=== PATIENT | female | born 1935 | race Caucasian/White ===

== ENCOUNTER 2017-03-10 08:01 | Emergency (ER) | payer MEDICARE, OTHER ==
[2017-03-10 08:20] VITALS: BP 141/78; PULSE 72; O2SAT 98
--- NOTE | 2017-03-10 08:28 | ERPHSYRPT ---
- History of Present Illness Time Seen by Provider: 03/10/17 08:12 Source: patient Patient Subjective Stated Complaint: girish irene on bed spread getting up this mornign has small skin tear on her left elbow Triage Nursing Assessment: pt alert and oriented, ambulates, well gait is steady , pupils perrla 1, lung sounds clear diminished, pulse equal bilateral radius, no pain or tenderness anywhere else. patient states she did not injure anywhere else. has a 4cm wide and 4 cm long half colmenares shape skin tear to left elbow. Physician History: CC: left elbow injury Hx: 81 y/o patient of Dr Mercado got up late and quickly this AM as she was late to go to the grocery. She got her feet tangled in the bedclothes and tripped. Sklin tear to the left elbow. No other injuries. No bony pain. No neck or back pain. No head injury. No N/T/W. Tetanus vaccine updated in past year. Occurred: this morning Extremities Pain Location: elbow: left Allergies/Adverse Reactions: ciprofloxacin [From Cipro] Allergy (Intermediate, Verified 08/16/13 17:49) ciprofloxacin HCl [From Cipro] Allergy (Intermediate, Verified 08/16/13 17:49) Sulfa (Sulfonamide Antibiotics) Allergy (Verified 08/16/13 17:49) Hx Tetanus, Diphtheria Vaccination/Date Given: Yes Hx Influenza Vaccination/Date Given: Yes Hx Pneumococcal Vaccination/Date Given: Yes Immunizations Up to Date: Yes - Review of Systems Constitutional: No Symptoms Musculoskeletal: Fall, No Back Pain, No Neck Pain Skin: Skin Lesions (skin tear) Neurological: No Focal Weakness, No Headache, No Parasthesia - Past Medical History Pertinent Past Medical History: No - Past Surgical History Past Surgical History: Yes Gastrointestinal: Appendectomy Female Surgical History: Hysterectomy Other Surgical History: tonsils - Social History Smoking Status: Never smoker Exposure to second hand smoke: No Drug Use: none Patient Lives Alone: No - Female History Hx Now: No - Nursing Vital Signs Nursing Vital Signs: Initial Vital Signs Temperature 97.9 F Temperature Source Oral Pulse Rate 72 Respiratory Rate 18 Blood Pressure [Right Arm] 141/78 Pain Intensity 0 - Physical Exam General Appearance: alert, other (pleasant lady) Eyes, Ears, Nose, Throat Exam: moist mucous membranes Neck Exam: normal inspection, non-tender, supple Cardiovascular/Respiratory Exam: chest non-tender, normal breath sounds, regular rate/rhythm Abdominal Exam: non-tender, soft Back Exam: normal inspection, No vertebral tenderness Shoulder Exam: normal inspection, non-tender Elbow/Forearm Exam: non-tender, normal ROM, abrasions (skin tear left elbow in arcuate flap nature measuing 5cm in total length) Wrist Exam: normal inspection, non-tender Hand Exam: normal inspection, non-tender SpO2: 98 Oxygen Delivery: Room Air - Course Nursing assessment & vital signs reviewed: Yes Ordered Tests: Active Orders 24 hr Category Date Time Status Wound Care STAT Care 03/10/17 08:22 Active - Progress Progress Note: 03/10/17 08:27 Pt declines xray. She has no bony pain. She needs wound care. Skin fragile so suture not likely best. Will repair with steri strips. Wound care in str given. Counseled pt/family regarding: diagnosis, need for follow-up - Departure Time of Disposition: 08:27 Departure Disposition: Home Clinical Impression: Skin tear of left elbow without complication Qualifiers: Encounter type: initial encounter Qualified Code(s): S51.012A - Laceration without foreign body of left elbow, initial encounter Fall Qualifiers: Encounter type: initial encounter Qualified Code(s): W19.XXXA - Unspecified fall, initial encounter Condition: Stable Critical Care Time: No Referrals: JOHN MERCADO [Primary Care Provider] - Instructions: Laceration Repair Steri-Strips Additional Instructions: Report any sign of infection. Change dressing daily. Keep clean and dry. Follow up with Dr Mercado as needed.
== END 2017-03-10 08:46 | disposition home or self-care (01) ==
LOC: ED 08:01
DX: S51.012A Laceration without foreign body of left elbow, initial encounter (principal); W01.0XXA Fall on same level from slipping, tripping and stumbling without subsequent striking against object, initial encounter
CPT/HCPCS: 99283

== ENCOUNTER 2020-04-12 11:13 | Emergency (ER) | payer MEDICARE, OTHER ==
[2020-04-12 11:40] VITALS: O2SAT 97
--- NOTE | 2020-04-12 11:46 | ERPHSYRPT ---
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 pt denies pain, no blood thinners reported. skin tear is approx 7 cm and not bleeding on arrival. covered with towel from home which stopped bleeding senior java web application developer. pt has full ROM of extremity and no loss of sensation. cap refil <3 sec and extremity warm dry and pink. Physician History: 85-year-old female came to the emergency room with complaining of superficial laceration on her left dorsum of the hand. Patient fell at home and had laceration approximately 7 cm superficial on her left wrist and hand and part of the lower forearm. Patient denies any other injury. Patient is not on any blood thinners. Timing/Duration: today Modifying Factors: Improves With: cold therapy Associated Symptoms: denies symptoms Allergies/Adverse Reactions: ciprofloxacin [From Cipro] Allergy (Intermediate, Verified 08/16/13 17:49) ciprofloxacin HCl [From Cipro] Allergy (Intermediate, Verified 08/16/13 17:49) Sulfa (Sulfonamide Antibiotics) Allergy (Verified 08/16/13 17:49) Hx Tetanus, Diphtheria Vaccination/Date Given: Yes Hx Influenza Vaccination/Date Given: Yes Hx Pneumococcal Vaccination/Date Given: Yes Travel Risk - International Travel Have you traveled outside of the country in past 3 weeks: No - Coronavirus Screening Are you exhibiting any of the following symptoms?: No Close contact with a COVID-19 positive Pt in past 14-21 Days: No - Review of Systems Constitutional: No Symptoms Eyes: No Symptoms Ears, Nose, & Throat: No Symptoms Respiratory: No Symptoms Cardiac: No Symptoms Abdominal/Gastrointestinal: No Symptoms Genitourinary Symptoms: No Symptoms Musculoskeletal: No Symptoms Skin: Other (laceration) Neurological: No Symptoms Psychological: No Symptoms Endocrine: No Symptoms - Past Medical History Pertinent Past Medical History: No - Past Surgical History Past Surgical History: Yes Gastrointestinal: Appendectomy Female Surgical History: Hysterectomy Other Surgical History: tonsils - Social History Smoking Status: Never smoker Exposure to second hand smoke: No Drug Use: none Patient Lives Alone: No - Female History Hx Now: No - Nursing Vital Signs Nursing Vital Signs: Initial Vital Signs Temperature 98.3 F 08/02/20 11:32 Pulse Rate 77 04/12/20 11:32 Respiratory Rate 18 04/12/20 11:32 Blood Pressure 153/78 04/12/20 11:32 O2 Sat by Pulse Oximetry 97 04/12/20 11:32 Pain Scale Pain Intensity 0 - Physical Exam General Appearance: no apparent distress Eye Exam: PERRL/EOMI Ears, Nose, Throat Exam: normal ENT inspection Neck Exam: normal inspection Cardiovascular Exam: regular rate/rhythm Extremity Exam: normal inspection, other (7 cm superficial laceration on the dorsum of wrist and lower forearm) Neurologic Exam: alert, oriented x 3 SpO2: 97 Procedures - Laceration/Wound Repair Left Wrist Wound Location: Left, wrist, hand Wound Length (cm): 7 Wound's Depth, Shape: superficial, contused tissue Wound Explored: clean Irrigated: Yes Hibiclens Prep: Yes Wound Repaired With: Steri-strips Sterile Dressing Applied?: No Splint Applied?: Yes - Course Nursing assessment & vital signs reviewed: Yes Ordered Tests: Active Orders 24 hr Category Date Time Status Wound Care STAT Care 04/12/20 11:37 Active - Progress Progress: improved Counseled pt/family regarding: diagnosis, need for follow-up - Departure Departure Disposition: Home Clinical Impression: ISTAP type 1 skin tear of left wrist Condition: Stable Critical Care Time: No Referrals: JOHN FRAGA [Primary Care Provider] - Follow Up with PCP/3 days Instructions: Wound Care (DC) Additional Instructions: Discharge/Care Plan CEDRIC VILLARREAL was seen on 04/12/20 in the Emergency Room. The patient was counseled regarding Diagnosis,Lab results, Imaging studies, need for follow up and when to return to the Emergency Room. Prescriptions given: Discharge Note I have spoken with the patient and/or caregivers. I have explained the patient's condition, diagnosis and treatment plan based on the information available to me at this time. I have answered the patient's and/or caregiver's questions and addressed any concerns. The patient and/or caregivers have as good understanding of the patient's diagnosis, condition and treatment plan as can be expected at this point. The vital signs have been stable. The patient's condition is stable and appropriate for discharge from the emergency department. The patient will pursue further outpatient evaluation with the primary care physician or other designated or consulting physician as outlined in the discharge instructions. The patient and/or caregivers are agreeable to this plan of care and follow-up instructions have been explained in detail. The patient and/or caregivers have received these instruction. The patient/and or caregivers are aware that any significant change in condition or worsening of symptoms should prompt an immediate return to this or the closest emergency department or call 911. Prescriptions: Cephalexin Mh 500 mg [Keflex 500 mg] 500 mg PO Q6H #40 capsule
[2020-04-12 12:21] VITALS: BP 150/97; PULSE 81
== END 2020-04-12 12:33 | disposition home or self-care (01) ==
LOC: ED 11:13
DX: S61.512A Laceration without foreign body of left wrist, initial encounter (principal); W18.30XA Fall on same level, unspecified, initial encounter; Y93.9 Activity, unspecified; Y92.009 Unspecified place in unspecified non-institutional (private) residence as the place of occurrence of the external cause
CPT/HCPCS: 99283; L3908

== ENCOUNTER 2024-03-02 17:23 | Emergency (ER) | payer MEDICARE, OTHER ==
--- NOTE | 2024-03-02 17:26 | ERPHSYRPT ---
- History of Present Illness Time Seen by Provider: 03/02/24 17:26 Source: patient Exam Limitations: no limitations Physician History: This is an 88-year-old white female patient who presents to the emergency department by private vehicle because of a cat scratch to her right lower extremity. She was having trouble with controlling the bleeding. She is not on any anticoagulation therapy. She has no known clotting or bleeding disorders. She has no liver disease. Patient is allergic to Cipro and sulfa antibiotics. This cat scratch occurred prior to arrival today. She takes no medicines chronically. Timing/Duration: today Severity: mild Location: extremities (Right lower leg) Associated Symptoms: denies symptoms Allergies/Adverse Reactions: ciprofloxacin [From Cipro] Allergy (Intermediate, Verified 08/16/13 17:49) ciprofloxacin HCl [From Cipro] Allergy (Intermediate, Verified 08/16/13 17:49) Sulfa (Sulfonamide Antibiotics) Allergy (Verified 08/16/13 17:49) Hx Tetanus, Diphtheria Vaccination/Date Given: Yes Hx Influenza Vaccination/Date Given: Yes Hx Pneumococcal Vaccination/Date Given: Yes Travel Risk - International Travel Have you traveled outside of the country in past 3 weeks: No - Emerging Infectious Disease Are you exhibiting symptoms associated with any current EIDs: No - Review of Systems Constitutional: No Symptoms Eyes: No Symptoms Ears, Nose, & Throat: No Symptoms Respiratory: No Symptoms Cardiac: No Symptoms Abdominal/Gastrointestinal: No Symptoms Genitourinary Symptoms: No Symptoms Musculoskeletal: No Symptoms Skin: Other (Cat scratch to right lower leg) Neurological: No Symptoms Psychological: No Symptoms Endocrine: No Symptoms Hematologic/Lymphatic: No Symptoms Immunological/Allergic: No Symptoms All Other Systems: Reviewed and Negative - Past Medical History Pertinent Past Medical History: No - Past Surgical History Past Surgical History: Yes Gastrointestinal: Appendectomy Female Surgical History: Hysterectomy Other Surgical History: tonsils - Social History Smoking Status: Never smoker Exposure to second hand smoke: No Drug Use: none Patient Lives Alone: No - Nursing Vital Signs Nursing Vital Signs: Initial Vital Signs Temperature 96.0 F 03/02/24 17:23 Pulse Rate 80 03/02/24 17:23 Respiratory Rate 18 03/02/24 17:23 Blood Pressure 126/83 03/02/24 17:23 O2 Sat by Pulse Oximetry 96 03/02/24 17:23 Pain Scale Pain Intensity 0 - Physical Exam General Appearance: no apparent distress, alert, anxiety, thin Eye Exam: PERRL/EOMI, eyes nml inspection Ears, Nose, Throat Exam: normal ENT inspection, moist mucous membranes Neck Exam: normal inspection, non-tender, supple, full range of motion Respiratory Exam: airway intact, No chest tenderness, No respiratory distress Gastrointestinal/Abdomen Exam: No tenderness Pelvic Exam: not done Rectal Exam: not done Back Exam: normal inspection, normal range of motion, CVA tenderness Extremity Exam: normal inspection, normal range of motion, pelvis stable Neurologic Exam: alert, oriented x 3, cooperative, 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 The skin is very thin. This is more of a skin tear.) Lymphatic Exam: No adenopathy SpO2 Interpretation: normal O2 Delivery: Room Air - Course Nursing assessment & vital signs reviewed: Yes - Progress Progress: unchanged Progress Note: 03/02/24 17:52 My medical decision making and the assignment of low complexity to this patient's medical issue today is based on review of the patient's past medical history, review of the patient's medication list, review of patient drug allergy list, history present illness and physical findings on examination. The patient does not require any laboratory radiographic studies in her workup today. Counseled pt/family regarding: diagnosis, need for follow-up Medical Desision Making - Independent Historian Additional History obtained from: Spouse - Diagnostic Testing Diagnostic test were ordered, analyzed, and reviewed by me: No - Risk of complications The pt has a mod risk of morbidity or mortality based on: Need for prescription drug management - Departure Departure Disposition: Home Clinical Impression: Cat scratch of right lower leg Condition: Stable Critical Care Time: No Referrals: JOHN FRAGA [Primary Care Provider] - Follow up/PCP as directed Additional Instructions: Keep the current pressure dressing in place until the evening of 03/03/2024. At that time you can remove the dressing and allow soap and water to run over the site. Do not rub the area. Blot dry or use a hair and makeup designer to dry the site. Apply antibiotic ointment to the site, a nonstick gauze and then rebandage. Do this each day. Take the antibiotics as prescribed. Prescriptions: Amoxicillin/Potassium Clav [Augmentin 500-125 Tablet] 1 each PO BID 3 Days #6 tablet
[2024-03-02 17:29] VITALS: BP 126/83; PULSE 80; RESP 18; TEMP 96; O2SAT 96
[2024-03-02] MEDS ORDERED: BACIGUENT PACKET ONE (18:03)
[2024-03-02] MEDS ORDERED: Augmentin 500-125 Tablet ONE (18:03)
[2024-03-02] MEDS: Augmentin 500-125 Tablet PO ONE (18:05)
[2024-03-02] MEDS: BACIGUENT PACKET TP ONE (18:06)
== END 2024-03-02 18:30 | disposition home or self-care (01) ==
LOC: ED 17:23
DX: S80.811A Abrasion, right lower leg, initial encounter (principal); W55.03XA Scratched by cat, initial encounter
CPT/HCPCS: 99281; A9270-GY